=== PATIENT | female | born 1955 | race Caucasian/White ===

== ENCOUNTER → 2022-07-19 | Emergency (ER) | payer MEDICAID ==
[~2022-07-19] VITALS: Ht 167.6 cm; Wt 41.7 kg
[~2022-07-19] MED LIST: IV NS 0.9% 1,000 ML BAG IV ONE; ONDA4TAB5 PO; ONDANSETRON 4 MG TAB.RAPDIS ONE; ONDANSETRON HCL/PF 4 MG/2 ML VIAL IVP ONE
[2022-07-19 07:48] VITALS: BP 136/84
--- NOTE | 2022-07-19 08:36 | NUR ---
ROLAN SON-IN-LAW [phone]
[2022-07-19 08:46] LABS: BASOPHILS % (AUTO) 0.6 % (0.0-2.0); EOSINOPHILS % (AUTO) 1.9 % (0.0-6.0); HEMATOCRIT 38 % (33-45); HEMOGLOBIN 12.6 g/dL (11.5-14.8); LYMPHOCYTES # (AUTO) 1.5 K/uL (0.8-4.8); LYMPHOCYTES % (AUTO) 19.4 % (20.0-44.0); MEAN CORPUSCULAR HGB CONC 33 g/dl (31.0-36.0); MEAN CORPUSCULAR VOLUME 92 fL (82-100); MONOCYTES # (AUTO) 0.4 K/uL (0.1-1.30); NEUTROPHILS # (AUTO) 5.5 K/uL (1.8-8.9); NEUTROPHILS % (AUTO) 73.1 % (43.0-81.0); PLATELET COUNT (AUTO) 250 K/uL (150-450); RED BLOOD CELL COUNT(AUTO) 4.16 MIL/uL (4.0-5.2); WHITE BLOOD COUNT (AUTO) 7.5 K/uL (4.3-11.0)
--- NOTE | 2022-07-19 08:49 | NUR ---
18G R AC SL PLACED
[2022-07-19 08:56] LABS: CALCIUM, SERUM 9.2 mg/dL (8.5-10.1); CREATININE 0.8 mg/dL (0.6-1.3); POTASSIUM 3.7 mmol/L (3.5-5.1)
[2022-07-19 09:03] LABS: ALBUMIN 3.7 g/dL (3.4-5.0); BILIRUBIN,DIRECT 0.1 mg/dL (0.0-0.2); BILIRUBIN,TOTAL 0.5 mg/dL (0.2-1.0); TOTAL PROTEIN, SERUM 6.9 g/dL (6.4-8.2)
--- NOTE | 2022-07-19 10:07 | NUR ---
URINE SAMPLE COLLECTED AND PLACED IN DROP-OFF FOR LAB
[2022-07-19 10:54] LABS: BILIRUBIN,URINE NEGATIVE (NEGATIVE); COLOR,URINE YELLOW (YELLOW); LEUKOCYTE ESTERASE ,URINE NEGATIVE (NEGATIVE); NITRITE, URINE NEGATIVE (NEGATIVE); PH,URINE 8.5 (5.0-8.0); PROTEIN,URINE NEGATIVE (NEGATIVE); UGLUCOSE NEGATIVE (NEGATIVE); UROBILINOGEN,URINE 0.2 EU/dL (0.2)
[2022-07-19 11:08] LABS: BACTERIA,URINE None seen /HPF (None Seen); RBC,URINE 0-2 /HPF (0-2); SQUAMOUS EPITHELIAL CELL,UR Rare /HPF (None Seen); WBC,URINE 0-2 /HPF (0-3)
--- NOTE | 2022-07-19 11:39 | NUR ---
IV removed. Catheter intact and site benign. Pressure and 4x4 applied to site. No bleeding noted. Patient discharged to home in stable condition. Written and verbal after care instructions given. Patient verbalizes understanding of instruction.
== END | disposition home or self-care (01) ==
LOC: ER 07:48
DX: R11.2 Nausea with vomiting, unspecified (principal); F17.200 Nicotine dependence, unspecified, uncomplicated; Z79.899 Other long term (current) drug therapy
CPT/HCPCS: 99284; 96374; 96361; 93005; 85025; 80048; 83690; 80076; 84703; 81001; 36415; J7030; Q0162

== ENCOUNTER 2023-06-24 09:29 | Emergency (ER) | payer MEDICAID ==
[~2023-06-24] VITALS: Ht 170.2 cm; Wt 53.5 kg
[~2023-06-24 09:29] MED LIST changes: -IV NS 0.9% 1,000 ML BAG IV ONE; -ONDANSETRON 4 MG TAB.RAPDIS ONE; -ONDANSETRON HCL/PF 4 MG/2 ML VIAL IVP ONE
[2023-06-24 09:53] VITALS: BP 142/68; TEMP 98.4
[2023-06-24] MEDS ORDERED: DIPH25CA83 PO (10:44)
[2023-06-24] MEDS ORDERED: CLOT12CR TP (10:44)
[2023-06-24] MEDS ORDERED: PERM60CR4 TP (10:44)
[2023-06-24] MEDS ORDERED: PERM59LI TP (10:44)
[2023-06-24 10:53] VITALS: O2SAT 100
== END 2023-06-24 10:53 | disposition home or self-care (01) ==
LOC: ER 09:33
DX: R21 Rash and other nonspecific skin eruption (principal); F17.200 Nicotine dependence, unspecified, uncomplicated; Z60.2 Problems related to living alone